=== PATIENT | female | born 1955 | race Caucasian/White ===

== ENCOUNTER → 2016-05-23 | Outpatient (CLI) | payer BC, OTHER ==
[~2016-05-23] MED LIST: ACTOS30 MG PO; AMBIEN PO; AMITRYPTYLINE PO; ASPIRINEC PO; AVAPRO PO; COREG CR PO; COZAAR PO; DARVOCET-N 1001 TAB PO; IBUPROFEN PO; JANUMET 50-1,1 UDTAB PO; PATIENT'S PHARMACY; VYTORIN 10/40 T1 TAB PO; XANAX0.5 MG PO
--- NOTE | ~2016-05-23 | CR63 ---
[facility] A Service of [facility] & [facility] RADIOLOGY TEXT RESULTS PATIENT: LOPEZ TAO [place] [facility] [place] 59 [place]IT #: [id number] AGE: [address]: Stanislaw Aguilera MD SEX: F ORDER DR: [id number] [facility] [address] [place], [place] [address] [id number] O MR#: [id number] Acc #: [id number] NAME: LOPEZ TAO : 1955 SEX: F STUDY DATE/TIME: 05/23/2016 10:22 [place] [facility] [place] STUDY DESCRIPTION: CR Chest 2 View Attending Physician: Stanislaw Aguilera M.D. Referring Physician: Stanislaw Aguilera M.D. Ordering Physician: Stanislaw Aguilera M.D. Primary Care Physician: Shannon Rod M.D. MEDICAL IMAGING REPORT This report is preliminary unless electronic signature is present EXAM Chest, 05/23/2016 HISTORY 60-year-old female patient preop clearance right hip. Osteoarthritis right hip. History of diabetes, hyperlipidemia. COMPARISON 08/17/2014 FINDINGS PA and lateral examination of the chest upright shows a good expansion of the parenchyma with a normal distribution of the pulmonary vascularity. There is no indication of congestion, effusion, infiltrate, tumor, or nodular density. The pleural reflections and diaphragmatic contours are normal. The cardiac silhouette and mediastinal anatomy is within normal limits. IMPRESSION Normal chest. Dictated by... Willian Gambino M.D. THIS IS AN ELECTRONICALLY VERIFIED REPORT Willian Gambino M.D. at 05/23/2016 3:19 PM Jon TD: 05/23/2016 15:00 JOB #: [id number] MEDICAL IMAGING REPORT COPY
--- NOTE | ~2016-05-23 | EKG ---
PATIENT: LOPEZ TAO UNIT #: [id number] Ventricular Rate: 72 BPM Atrial Rate: 72 BPM P-R Interval: 152 ms QRS Duration: 82 ms Q-T Interval: 402 ms QTC Calculation(Bezet): 440 ms P [place]: 14 degrees Calculated R [place]: -16 degrees Calculated T [place]: 31 degrees Diagnosis Line: Normal sinus rhythm Diagnosis Line: Normal ECG Diagnosis Line: Diagnosis Line: Confirmed by VICTORIA PEARSON MD ([id number]) on 05/26/2016 Diagnosis Line: 7:21:28 AM INTERPRETING MD: MICHEL ROTHMAN
[2016-05-23 10:36] LABS: HEMATOCRIT 38.1 % (35.0-45.0); HEMOGLOBIN 12.3 gm/dL (12.0-16.0); MEAN CELL VOLUME 88.8 FL (83-96); MEAN CORPUSCULAR HEMOGLOBIN 28.8 PG (28-34); MEAN CORPUSCULAR HGB CONC 32.4 g/dL (30-36); RED BLOOD COUNT 4.29 X10e (3.90-5.30); RED CELL DISTRIBUTION WIDTH 14.1 % (11.0-15.5); WHITE BLOOD COUNT 5.8 X10e3 (4.0-10.5)
[2016-05-23 11:15] LABS: ALBUMIN SERUM 4.2 g/dL (3.5-5.0); ALKALINE PHOSPHATASE 70 U/L (32-92); ALT (SGPT) 24 U/L (10-40); AST (SGOT) 25 U/L (10-42); BILIRUBIN,TOTAL 0.8 mg/dL (0.2-2.0); BLOOD UREA NITROGEN 15 mg/dL (9-23); CALCIUM SERUM 9.1 mg/dL (8.4-10.2); CARBON DIOXIDE 28 mmol/L (22-31); CHLORIDE 106 mmol/L (100-111); CREATININE SERUM 0.5 mg/dL (0.6-1.4); GLOM FILT RATE Estimated ABOVE60 mL/min (>60); GLUCOSE FASTING 127 mg/dL (70-110); POTASSIUM 4.8 mmol/L (3.5-5.1); PROTEIN TOTAL SERUM 7.2 g/dL (6.0-8.3); SODIUM 137 mmol/L (135-145)
== END | disposition home or self-care (01) ==
LOC: CEKG 09:30
PROVIDERS: Orthopaedic Surgery
DX: Z01.818 Encounter for other preprocedural examination (principal); M16.11 Unilateral primary osteoarthritis, right hip; E11.9 Type 2 diabetes mellitus without complications; I10 Essential (primary) hypertension; E03.9 Hypothyroidism, unspecified; E78.5 Hyperlipidemia, unspecified
CPT/HCPCS: 36415; 71020; 80053; 83036; 85027; 85610; 86850; 86900; 86901; 93005

== ENCOUNTER → 2016-10-14 | Outpatient (CLI) | payer BC, OTHER ==
[2016-10-14 13:11] LABS: ALBUMIN SERUM 4.3 g/dL (3.5-5.0); CALCIUM SERUM 9.4 mg/dL (8.4-10.2); CREATININE SERUM 0.6 mg/dL (0.6-1.4); GLOM FILT RATE Estimated 99.8 mL/min (>60); POTASSIUM 3.9 mmol/L (3.5-5.1); PROTEIN TOTAL SERUM 7.9 g/dL (6.0-8.3)
[2016-10-14 13:13] LABS: BILIRUBIN,TOTAL 0.3 mg/dL (0.2-2.0)
[2016-10-14 13:37] LABS: THYROID STIMULATING HORMONE 9.49 uIU/ml (0.34-5.60)
[2016-10-14 13:41] LABS: FREE T3 3.3 pg/mL (2.5-3.9)
== END | disposition home or self-care (01) ==
LOC: CLAB 11:42
PROVIDERS: Internal Medicine Endocrinology, Diabetes & Metabolism
DX: E04.1 Nontoxic single thyroid nodule (principal); E03.9 Hypothyroidism, unspecified
CPT/HCPCS: 36415; 80053; 84439; 84443; 84481